=== PATIENT | female | born 1970 ===

== ENCOUNTER 2016-08-15 12:29 | Emergency (ER) | payer SELFPAY ==
[2016-08-15 17:00] VITALS: BP 120/79
--- NOTE | 2016-08-15 17:36 | Emergency Department Report ---
ED General Adult HPI - General Chief complaint: Headache Stated complaint: HEADACHE Time Seen by Provider: 08/15/16 17:30 Source: patient Mode of arrival: Ambulatory Limitations: No Limitations - History of Present Illness Initial comments: 46-year-old female comes in for complaint of chronic back pain and headache. Patient reports that she has been out of her diabetic medicine and pain medicine for over a month. As well as her hypertensive medicine. She reports that she has arthritis in her spine and she has been taking Percocet but has been out of it for month. She reports that she's been taking her amlodipine 5 mg twice a day because she was checking her blood pressures at home and they were still elevated. She reports that she sometimes had difficulty swallowing no pain. Severity scale (0 -10): 8 - Related Data Home Medications Medication Instructions Recorded Confirmed Last Taken Oxycodone HCl/Acetaminophen PRN 08/15/16 Unknown [Percocet 10/325 mg] amLODIPine [Norvasc] 5 mg PO DAILY 08/15/16 08/15/16 Unknown Previous Rx's Medication Instructions Recorded Last Taken Type Ibuprofen [Motrin 800 MG tab] 800 mg PO Q8HR PRN #90 tablet 08/15/16 Unknown Rx Metformin HCl [Fortamet ER] 1,000 mg PO BID #60 tab.er.24 08/15/16 Unknown Rx amLODIPine [Norvasc] 10 mg PO DAILY #30 tab 08/15/16 Unknown Rx glipiZIDE [Glucotrol] 5 mg PO BID #30 tablet 08/15/16 Unknown Rx Allergies Allergy/AdvReac Type Severity Reaction Status Date / Time No Known Allergies Allergy Unverified 08/15/16 13:30 ED Review of Systems ROS: Stated complaint: HEADACHE Other details as noted in HPI Musculoskeletal: arthralgia Neurological: headache ED Past Medical Hx - Past Medical History Previous Medical History?: Yes Hx Hypertension: Yes Hx Diabetes: Yes Additional medical history: Back pain - Surgical History Past Surgical History?: Yes Additional Surgical History: x 4 - Social History Smoking Status: Current Some Day Smoker Substance Use Type: Alcohol - Medications Home Medications: Home Medications Medication Instructions Recorded Confirmed Last Taken Type Ibuprofen [Motrin 800 MG tab] 800 mg PO Q8HR PRN #90 tablet 08/15/16 Unknown Rx Metformin HCl [Fortamet ER] 1,000 mg PO BID #60 tab.er.24 08/15/16 Unknown Rx Oxycodone HCl/Acetaminophen PRN 08/15/16 Unknown History [Percocet 10/325 mg] amLODIPine [Norvasc] 5 mg PO DAILY 08/15/16 08/15/16 Unknown History amLODIPine [Norvasc] 10 mg PO DAILY #30 tab 08/15/16 Unknown Rx glipiZIDE [Glucotrol] 5 mg PO BID #30 tablet 08/15/16 Unknown Rx ED Physical Exam - General Limitations: No Limitations General appearance: alert, in no apparent distress - Head Head exam: Present: atraumatic, normocephalic - Eye Eye exam: Present: normal appearance, PERRL, EOMI, other (eyes appeared to be excellent, S) - Neck Neck exam: Present: full ROM, thyromegaly. Absent: tenderness - Respiratory Respiratory exam: Present: normal lung sounds bilaterally - Cardiovascular Cardiovascular Exam: Present: regular rate, normal rhythm, normal heart sounds ED Course Vital Signs 08/15/16 08/15/16 13:32 16:57 Temperature 98.4 F 98.2 F Pulse Rate 93 H 86 Respiratory 20 15 Rate Blood Pressure 129/76 Blood Pressure 120/79 [Left] O2 Sat by Pulse 98 97 Oximetry Critical care attestation.: If time is entered above; I have spent that time in minutes in the direct care of this critically ill patient, excluding procedure time. ED Disposition Clinical Impression: Diabetes 1.5, managed as type 2, Head ache Disposition: DISCHARGED TO HOME OR SELFCARE Is pt being admited?: No Does the pt Need Aspirin: No Instructions: Diabetes Mellitus Type 2 in Adults (ED) Additional Instructions: Discussed with patient that she needs to follow with a memory care provider her TSH was on the low side of normal. As well as follow for her chronic hypertension and headaches. Prescriptions: Metformin HCl [Fortamet ER] 1,000 mg PO BID #60 tab.er.24 glipiZIDE [Glucotrol] 5 mg PO BID #30 tablet Ibuprofen [Motrin 800 MG tab] 800 mg PO Q8HR PRN #90 tablet PRN Reason: Pain amLODIPine [Norvasc] 10 mg PO DAILY #30 tab
[2016-08-15] MEDS ORDERED: MOTRIN PO ONE (17:37)
== END 2016-08-15 19:04 | disposition home or self-care (01) ==
LOC: ED 12:29
DX: E11.9 Type 2 diabetes mellitus without complications (principal); R51 Headache; I10 Essential (primary) hypertension; F17.200 Nicotine dependence, unspecified, uncomplicated
CPT/HCPCS: 36415; 84443; 99283